=== PATIENT | female | born 1945 | race Caucasian/White ===

== ENCOUNTER → 2023-01-23 08:56 | Outpatient (CLI) | payer OTHER, SELFPAY ==
[2023-01-23 10:28] LABS: Cholesterol 116 mg/dL (140-199); HDL Cholesterol 48 mg/dL (40-60); LDL Cholesterol Calculated 56 mg/dL (<100); Triglycerides 58 mg/dL (35-150)
== END ==
PROVIDERS: PCP Student in an Organized Health Care Education/Training Program; Referring Provider Student in an Organized Health Care Education/Training Program; Visit Provider Student in an Organized Health Care Education/Training Program
DX: Z86.39 Personal history of other endocrine, nutritional and metabolic disease (principal)
CPT/HCPCS: 36415; 80061

== ENCOUNTER → 2023-08-19 11:35 | Outpatient (CLI) | payer OTHER, SELFPAY ==
--- NOTE | 2023-08-19 11:37 | DI.RAD.S_ITS ---
PROCEDURE: XR LUMBAR SPINE 2-3V INDICATIONS: Radicular Pain TECHNIQUE: 3 views of the lumbar spine were acquired. COMPARISON: None. FINDINGS: Bones: 5 [id number] vertebrae are present. There is mild, approximately 6 millimeters of T12-L1 and L1-L2 retrolisthesis. Mild, approximately 4 millimeters of L4-L5 anterolisthesis.. Convex right thoracolumbar spine scoliosis. Spine degenerative disc disease and facet arthropathy. No vertebral body compression fractures. No suspicious bony lesions. Soft tissues: Overlying bowel gas pattern is normal. No suspicious soft tissue calcifications. IMPRESSION: Multilevel degenerative disc disease. Multilevel facet arthropathy. Convex right thoracolumbar spine scoliosis. No fracture. No acute osseous lesion. If symptoms and/or clinical suspicion for pathology persists, evaluation with MRI should be considered for further assessment. Dictated by: Karyna Barron MD, PhD on 08/19/2023 at 12:33 Approved by: Karyna Barron MD, PhD on 08/19/2023 at 12:38
--- NOTE | 2023-08-19 11:37 | DI.RAD.S_ITS ---
PROCEDURE: XR HIP W PEL IF DONE RT 2V INDICATIONS: Radicular Pain TECHNIQUE: AP pelvis with lateral view(s) of the right hip(s). COMPARISON: None. FINDINGS: Bones: No fractures or dislocations. Pelvic ring appears intact. No suspicious bony lesions. Soft tissues: The visualized bowel gas pattern is normal. No suspicious soft tissue calcifications. IMPRESSION: No acute bony abnormality. Dictated by: Karyna Barron MD, PhD on 08/19/2023 at 12:39 Approved by: Karyna Barron MD, PhD on 08/19/2023 at 12:39
== END ==
PROVIDERS: PCP Student in an Organized Health Care Education/Training Program; Referring Provider Student in an Organized Health Care Education/Training Program; Visit Provider Student in an Organized Health Care Education/Training Program
DX: M54.10 Radiculopathy, site unspecified (principal); M51.36 Other intervertebral disc degeneration, lumbar region; M47.816 Spondylosis without myelopathy or radiculopathy, lumbar region; M41.9 Scoliosis, unspecified; M54.9 Dorsalgia, unspecified; G89.29 Other chronic pain
CPT/HCPCS: 72100; 73502

== ENCOUNTER → 2023-09-05 11:08 | Outpatient (CLI) | payer OTHER, SELFPAY ==
--- NOTE | 2023-09-05 11:09 | DI.MRI.S_ITS ---
PROCEDURE: MR LUMBAR SPINE WO CON INDICATIONS: LUMBAR RADICULOPATHY TECHNIQUE: Noncontrast sagittal T1 spin echo and T2 fast echo, sagittal STIR, and T2 fast spin echo through the lumbar spine. In cases with scoliosis, additional coronal T2 fast spin echo may be performed. COMPARISON: [facility], CR, XR LUMBAR SPINE 2-3V, 08/19/2023, 11:45. FINDINGS: Image quality: Excellent. Alignment and Curvature: S shaped thoracolumbar scoliotic curvature. Lumbar convexity is to the left, centered at L3-L4. Trace anterolisthesis of L1 on L2 and L2 on L3. Trace anterolisthesis of L4 on L5. Bone Marrow: Marrow is of normal overall signal. No acute vertebral body compression fractures. Spinal Cord: Conus medullaris terminates at the top of T1 level. Visualized cord demonstrates normal signal and size. Paraspinous Soft Tissues: No paravertebral masses. T10-T11: This area is not included on axial imaging, is the study is a lumbar spine MRI. That being said, there is a moderately large posterior disc protrusion indenting on the the cord resulting in canal stenosis. Reference sagittal image 10 of series 3. Canal stenosis may be as much as moderate. T11-T12: Disc height loss. Disc bulge. No canal stenosis or foraminal stenosis. T12-L1: Central posterior annulus tear plus disc bulge. Facet hypertrophy. No canal stenosis or foraminal stenosis. L1-L2: Severe chronic disc height loss. Trace retrolisthesis of L1 on L2. Facet hypertrophy. No canal stenosis or significant foraminal stenosis. L2-L3: Mild chronic disc height loss. Disc bulge with mild associated right posterior disc protrusion. No significant central canal stenosis. There is a degree of right lateral recess stenosis. [id number]-[id number] right foraminal narrowing. L3-L4: Disc bulge. Facet hypertrophy. Epidural lipomatosis. No canal stenosis or foraminal stenosis.. L4-L5: Anterolisthesis of L4 on L5. Disc bulge. Facet hypertrophy. The mild canal stenosis. [id number] right foraminal stenosis. Left foramen is patent. L5-S1: Severe chronic disc height loss. Remote left hemilaminectomy. Facet hypertrophy. No canal stenosis. Moderate to severe right foraminal narrowing with a degree of right foraminal L5 nerve root impingement. Reference sagittal T2 image 4 of series 3. IMPRESSION: 1. Underlying scoliotic curvature and multilevel facet arthropathy. 2. Seen on this lumbar spine MRI is a moderately large posterior disc protrusion at T10-T11 which indents on the cord resulting in as much as moderate canal stenosis. 3. There is mild canal stenosis at L4-L5. 4. Moderate to severe right foraminal narrowing at L5-S1. Dictated by: Sesar Gama M.D. on 09/05/2023 at 15:33 Approved by: Sesar Gama M.D. on 09/05/2023 at 15:43
== END ==
LOC: MRI 11:09
PROVIDERS: PCP Student in an Organized Health Care Education/Training Program; Referring Provider Orthopaedic Surgery Adult Reconstructive Orthopaedic Surgery; Visit Provider Orthopaedic Surgery Adult Reconstructive Orthopaedic Surgery
DX: M47.26 Other spondylosis with radiculopathy, lumbar region (principal); M47.27 Other spondylosis with radiculopathy, lumbosacral region; M48.061 Spinal stenosis, lumbar region without neurogenic claudication; M48.07 Spinal stenosis, lumbosacral region; M51.14 Intervertebral disc disorders with radiculopathy, thoracic region; M48.04 Spinal stenosis, thoracic region
CPT/HCPCS: 72148

== ENCOUNTER → 2023-09-09 19:34 | Outpatient (CLI) | payer OTHER, SELFPAY ==
--- NOTE | 2023-09-09 19:35 | DI.MRI.S_ITS ---
PROCEDURE: MR KNEE RT WO CON INDICATIONS: R knee swelling with pain TECHNIQUE: Noncontrast sagittal PD fast spin echo and T2 fast spin echo with fat saturation, sagittal 3-D FLASH with fat saturation; coronal T1 spin echo and PD fast spin echo with fat saturation, and axial PD fast spin echo with fat saturation through the knee. COMPARISON: None. FINDINGS: Image quality: Excellent. Menisci: Oblique tear involving posterior horn of medial meniscus is seen extending to inferior articulating surface. Peripheral displacement of medial meniscus bowing medial collateral ligament is also seen. There is also peripheral displacement of lateral meniscus with horizontal tear throughout lateral meniscus in superimposed oblique tear involving anterior horn and body of lateral meniscus extending to inferior articulating surface. The meniscal root ligaments appear intact. Cruciate ligaments: The anterior cruciate ligament is thickened with intrasubstance T2 hyperintense signal. Intrasubstance T2 hyperintense signal involving proximal posterior cruciate ligament near its proximal insertion. Medial structures: The medial collateral ligament appears mildly thickened with surrounding soft tissue edema and intrasubstance T2 hyperintense signal. Visualized portions of the pes anserinus tendons appear normal. No abnormal bursal fluid. Lateral structures: The lateral collateral ligament is thickened with intrasubstance T2 hyperintense signal near its femoral insertion. The long and short heads of the biceps femoris tendon appear intact. There is partial thickness tear and fluid distending tendon sheath involving proximal popliteus tendon extending to musculotendinous junction. Edema and fluid involving soft tissue between iliotibial band and lateral periphery of lateral femoral condyle. Anterior structures: The quadriceps tendon is intact. Diffusely thickened patellar tendon is seen.. Patellar alignment is normal. Edema is noted within infrapatellar fat pad. Bones and cartilage: Moderate tricompartmental osteoarthritis and chondromalacia is seen more notably in lateral femoral tibial compartment. No acute fracture or dislocation. Joint space: There is moderate suprapatellar knee joint fluid with fluid extending to posterior lateral aspect of left knee joint. There is a popliteal cyst measures up to 2.3 x 2.4 x 5.3 cm in size. Normal appearing synovial plicae are incidentally noted. IMPRESSION: 1. Oblique tear involving posterior horn of medial meniscus extending to inferior articulating surface. Horizontal tear throughout lateral meniscus with superimposed oblique tear involving body and posterior horn of lateral meniscus extending to inferior articulating surface. 2. Degenerative changes and low-grade sprain involving anterior cruciate ligament. Low-grade sprain/partial-thickness tear involving proximal PCL. No full-thickness cruciate ligament rupture. 3. Low-grade intrasubstance partial-thickness tear involving medial collateral ligament. Low to moderate grade partial-thickness tear involving proximal LCL. 4. Tenosynovitis and low to moderate grade partial-thickness tear involving popliteus tendon extending to musculotendinous junction. 5. Patellar tendinosis. The quadriceps tendon is intact. 6. Edema involving soft tissue between iliotibial band and lateral femoral condyle suggest clinical correlation for possible iliotibial band syndrome. 7. Moderate tricompartmental osteoarthritis and chondromalacia most notably in lateral femoral tibial compartment. No fracture or dislocation. Small to moderate joint effusion and a popliteal cyst as above. No gross loose bodies. Dictated by: Ángel Valdez M.D. on 09/09/2023 at 20:53 Approved by: Ángel Valdez M.D. on 09/09/2023 at 21:02
== END ==
PROVIDERS: PCP Student in an Organized Health Care Education/Training Program; Referring Provider Student in an Organized Health Care Education/Training Program; Visit Provider Student in an Organized Health Care Education/Training Program
DX: S83.241A Other tear of medial meniscus, current injury, right knee, initial encounter (principal); S83.281A Other tear of lateral meniscus, current injury, right knee, initial encounter; S83.511A Sprain of anterior cruciate ligament of right knee, initial encounter; S83.521A Sprain of posterior cruciate ligament of right knee, initial encounter; M65.9 Synovitis and tenosynovitis, unspecified; M17.11 Unilateral primary osteoarthritis, right knee; M94.261 Chondromalacia, right knee; M71.21 Synovial cyst of popliteal space [Baker], right knee; M25.561 Pain in right knee; M25.461 Effusion, right knee
CPT/HCPCS: 73721

== ENCOUNTER → 2023-09-26 12:56 | Outpatient (CLI) | payer OTHER, SELFPAY ==
[2023-09-26 13:17] LABS: Add Manual Diff / Slide Review NO; Basophils Absolute Auto 0 /uL (0-100); Basophils Percent Auto 0.5 % (0-2); Eosinophils Absolute Auto 200 /uL (0-450); Eosinophils Percent Auto 2.2 % (2-4); Hematocrit 35.7 % (36-46); Hemoglobin 12.3 g/dL (12.0-16.0); Lymphocytes Absolute Auto 1500 /uL (1100-4500); Lymphocytes Percent Auto 19.5 % (25-40); Mean Corpuscular HGB Conc 34.4 % (30-36); Mean Corpuscular Hemoglobin 28.7 PG (26-34); Mean Corpuscular Volume 83.3 fL (80-100); Monocytes Absolute Auto 500 /uL (0-900); Monocytes Percent Auto 6.5 % (3-14); Neutrophils Absolute Auto 5400 /uL (1500-7000); Neutrophils Percent Auto 71.3 % (50-75); Platelet Count 323 X10^3/uL (150-400); Red Blood Cell Count 4.29 X10^6/uL (4.0-5.2); Red Cell Distribution Width 14.3 % (11.6-14.8); White Blood Cell Count 7.6 X10^3/uL (4.5-11.0)
[2023-09-26 13:40] LABS: Alanine Aminotransferase 13 IU/L (<35); Albumin 4.5 g/dL (3.5-5.0); Albumin Globulin Ratio 1.4 (1.0-2.8); Alkaline Phosphatase 64 U/L (38-126); Aspartate Aminotransferase 24 IU/L (14-36); BUN Creatinine Ratio 25.6 (6-22); Bilirubin Total 0.8 mg/dL (0.2-1.3); Blood Urea Nitrogen 22 mg/dL (7-17); Calcium 9.4 mg/dL (8.4-10.2); Carbon Dioxide 27 mmol/L (22-32); Chloride 107 mmol/L (98-107); Cholesterol 148 mg/dL (140-199); Estimated Glomerular Filt Rate > 60 mL/min (>60); Globulin 3.2 g/dL (1.7-4.1); Glucose 103 mg/dL (80-110); HDL Cholesterol 54 mg/dL (40-60); HEMOLYSIS < 15 (0-50); LDL Cholesterol Calculated 77 mg/dL (<100); Potassium 3.9 mmol/L (3.4-5.1); Sodium 142 mmol/L (137-145); Total Protein 7.7 g/dL (6.3-8.2); Triglycerides 84 mg/dL (35-150)
[2023-09-26 15:35] LABS: Hemoglobin A1C% w Est Avg Glu 5.8 % (4.0-6.0)
== END ==
PROVIDERS: PCP Student in an Organized Health Care Education/Training Program; Referring Provider Student in an Organized Health Care Education/Training Program; Visit Provider Student in an Organized Health Care Education/Training Program
DX: E78.5 Hyperlipidemia, unspecified (principal); R79.89 Other specified abnormal findings of blood chemistry; Z83.3 Family history of diabetes mellitus; K21.9 Gastro-esophageal reflux disease without esophagitis
CPT/HCPCS: 36415; 80053; 80061; 83036; 85025

== ENCOUNTER → 2023-09-29 11:13 | Outpatient (CLI) | payer OTHER, SELFPAY ==
[2023-09-30 08:36] LABS: Fecal Immunochemical Test Negative (Negative)
== END ==
PROVIDERS: PCP Student in an Organized Health Care Education/Training Program; Referring Provider Student in an Organized Health Care Education/Training Program; Visit Provider Student in an Organized Health Care Education/Training Program
DX: Z12.11 Encounter for screening for malignant neoplasm of colon (principal)
CPT/HCPCS: 82274

== ENCOUNTER → 2024-01-09 09:06 | Outpatient (CLI) | payer OTHER, SELFPAY ==
--- NOTE | 2024-01-09 09:07 | DI.MG.S_ITS ---
BILATERAL DIGITAL SCREENING MAMMOGRAM 3D/2D WITH CAD: 01/09/2024 CLINICAL: Routine screening. Comparison is made to exams dated: 10/20/2019 mammogram, 05/20/2017 mammogram, and 05/04/2015 mammogram - outside facility. There are scattered areas of fibroglandular density (category b / 25%-50% glandular tissue). Current study was also evaluated with a Computer Aided Detection (CAD) system. No significant masses, calcifications, or other findings are seen in either breast. There has been no significant interval change. IMPRESSION: NEGATIVE There is no mammographic evidence of malignancy. A 1 year screening mammogram is recommended. Based on the Tyrer Cuzick model (a risk assessment model) the patient's lifetime risk is 3.2% and her 10 year risk is 0.0%. According to the ACR, ACS, and NCCN guidelines, an annual breast MRI exam along with mammogram is recommended if the patient's lifetime risk is 20% or greater. This exam was interpreted at Station ID: [id number]. NOTE: For mammograms, a report in lay terms will be sent to the patient. Approximately 15% of breast malignancies will not be visualized mammographically. In the management of a palpable breast mass, a negative mammogram must not discourage biopsy of a clinically suspicious lesion. Electronically Signed By: Renetta Valdez M.D., Ph.D. karen/moody:01/10/2024 00:13:53 letter sent: Normal Exam ACR BI-RADS Category 1: Negative
== END ==
LOC: MAMMO 09:07
PROVIDERS: PCP Student in an Organized Health Care Education/Training Program; Referring Provider Student in an Organized Health Care Education/Training Program; Visit Provider Student in an Organized Health Care Education/Training Program
DX: Z12.31 Encounter for screening mammogram for malignant neoplasm of breast (principal)
CPT/HCPCS: 77063; 77067

== ENCOUNTER 2024-09-18 10:09 | Emergency (ER) | payer OTHER, SELFPAY ==
--- NOTE | 2024-09-18 10:25 | ED_ITS ---
HPI - General Adult General Chief complaint: Abdominal Pain Stated complaint: Sent from [facility] N/V/D 2 weeks Time Seen by Provider: 09/18/24 10:24 History of Present Illness HPI narrative: 79-year-old woman with a history of hyperlipidemia, reflux presents complaining of nausea vomiting intermittent diarrhea and constipation along with overall abdominal pain. She has noted fevers and chills over the last couple of days. She does note irritable bowel syndrome and frequently has alternating diarrhea and constipation. She complains overall general malaise and feels she is getting worse. She has had a colonoscopy in the past with some benign polyps and is scheduled for a repeat colonoscopy within the year. Related Data Home Medications ?Medication ?Instructions ?Recorded ?Confirmed cyanocobalamin (vitamin B-12) 500 500 mcg PO DAILY 11/07/23 mcg lozenges (Vitamin B-12) omeprazole 20 mg capsule,delayed 20 mg PO DAILY 11/07/23 release Previous Rx's ?Medication ?Instructions ?Recorded cyclobenzaprine 5 mg tablet 5 mg PO TID PRN muscle spa sm #30 08/19/23 tabs naproxen 500 mg tablet 500 mg PO BID #30 tabs 08/18 hydrocodone 7.5 mg-acetaminophen 1 tab PO TID PRN pain #20 tabs 09/09/23 325 mg tablet prednisone 20 mg tablet 40 mg (2 x 20 mg) PO DAILY # 10 tabs 09/09/23 atorvastatin 20 mg tablet 20 mg PO DAILY #90 tabs 06/24 05/18 Allergies Allergy/AdvReac Type Severity Reaction Status Date / Time codeine AdvReac Mild Anxiety Verified 09/18/24 10:28 Review of Systems Review of Systems Narrative: Pertinent positive and negative findings as per HPI Patient History Medical History (Updated 09/18/24 @ 13:06 by Maine Pham MD) Papanicolaou smear of cervix within last year History of mammogram Age spots (~2018) Plantar fasciitis (~2020) Chronic back pain Surgical History (Updated 09/25/23 @ 11:46 by Marian Underwood MA) History of appendectomy (08/06/1957) [place] teeth removed (08/06/69) Anesthesia History of colonoscopy History of appendectomy (~1955) Family History (Updated 03/01/23 @ 21:26 by Nikole Santana) Father Cancer Mother Vascular disease Sister Diabetes mellitus Exam Initial Vital Signs Initial Vital Signs: General: Healthy appearing, in no acute distress. Able to give a complete and coherent history. Well-nourished well-developed HEENT: Moist mucous membranes, normal sclera with reactive pupils, Respiratory: Lungs are clear to auscultation, no wheezing no rales no rhonchi. Full and symmetrical air movement Cardiac: Regular rate and rhythm no murmurs no bruits Abdomen: Soft, mild diffuse pain without rebound or guarding, no flank pain Skin: Warm and dry, no rashes Neurologic: Grossly neurologically intact with no obvious asymmetries or abnormalities Extremities: No trauma, well perfused Psych: Cooperative, appropriate insight and affect Medical Decision Making Imaging Data CT scan - abdomen/pelvis: Radiologist's Impression: PROCEDURE: CT ABDOMEN PELVIS W CON INDICATIONS: diffuse abd pain continues with N/V/D TECHNIQUE: After the administration of intravenous contrast, axial sections acquired from the lung bases to the pubic symphysis. Coronal and sagittal reformats were performed. For radiation dose reduction, the following was used: automated exposure control, adjustment of mA and/or kV according to patient size. COMPARISON: None. FINDINGS: Image quality: Diagnostic. Lower Chest: No significant findings. ABDOMEN: Liver: No solid mass. 6.5 cm right hepatic cyst Gallbladder: Cholecystectomy. Biliary ducts: No biliary dilation. Pancreas: No ductal dilation. Spleen: Size is within normal limits. Adrenal Glands: No adrenal nodules. Kidneys and Ureters: No hydronephrosis. No solid mass. No complex renal cystic lesion which requires follow up. Stomach and Bowel: Normal colonic caliber, without significant wall thickening. Peritoneum: No abnormal intraperitoneal fluid. No free air. Ventral Wall: No significant ventral hernia. Abdominal Nodes: No retroperitoneal or mesenteric adenopathy by size criteria. Vessels: Aorta and inferior vena cava are normal in size. PELVIS: Pelvic Organs: Uterine fibroid measures 2.8 cm. Bladder: No bladder wall thickening, accounting for underdistention. Pelvic Nodes: No enlarged lymph nodes. Miscellaneous: No inguinal hernias are seen. Bones: Right L5 hemilaminectomy left pars defect. Advanced lumbar spine degenerative disc disease and arthropathy. IMPRESSION: No acute CT findings in the abdomen and pelvis Approved by: Gerald Wiley M.D. on 09/18/2024 at 11:05 [facility] Narrative Medical decision making narrative: CC: Nausea vomiting diarrhea increasing abdominal pain over the last 3 weeks along with malaise in his sense of general unwell Complicating co-morbidities: Hyperlipidemia, reflux Data collected from: patient Medical records reviewed: Wellness notes from primary care exam reviewed Differential considered: Viral syndrome, partial bowel obstruction, colitis, neoplastic process Exam documented above, pertinent findings include: Mild abdominal pain without any other findings Lab Test results independently reviewed as above. Pertinent findings: CBC is unremarkable Chemistries are reassuring with normal liver studies Lactic is not elevated Urine has trace ketones leukocyte esterase white cells, bacteria, squamous cells and mucus. We will wait for culture prior to calling this and infection Imaging studies independently reviewed: CT scan does not show significant abnormalities, specifically no explanation for the intermittent episodes of diarrhea and constipation Discussion: Findings reviewed with patient. 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 There is no evidence of obvious neoplastic process infection, obstruction or alternate explanation. We talked about using increased fiber to help with the intermittent diarrhea and constipation. Reassurance is given all questions were answered. There was no indication for hospitalization or additional workup and she is safe for dis charge Discharge Plan Departure Patient Disposition: Home Clinical Impression: Abdominal pain Qualifiers: Abdominal location: generalized Qualified Code(s): R10.84 - Generalized abdominal pain Instructions: DI for Abdominal Pain-Adult Activity Restrictions/Additional Instructions: Thank you for coming in today Your workup was quite reassuring. Lab studies looking at liver, kidneys, electrolytes, red blood cells and white blood cells were entirely reassuring. The CT scan that we did of your abdomen did not show significant pathology, specifically no obvious cancers or obstructions. With intermittent diarrhea and constipation, sometimes that can be stress related. Activity and consistent fiber and fluids always helps. It sounds like you have good habits with both of these already. I would recommend you consider adding fiber supplements daily. Fiber can make hard stool softer and soft stool have a bit more substance. I would recommend discussing this further with your primary care physician. If you find that you are getting worse, develop new symptoms or have further concerns please return to the ER Prescriptions: No Action omeprazole 20 mg capsule,delayed release(DR/EC) 20 mg PO DAILY cyanocobalamin (vitamin B-12) [Vitamin B-12] 500 mcg lozenge 500 mcg PO DAILY naproxen 500 mg tablet 500 mg PO BID Qty: 30 0RF cyclobenzaprine 5 mg tablet 5 mg PO TID PRN (Reason: muscle spasm) Qty: 30 0RF hydrocodone-acetaminophen 7.5-325 mg tablet 1 tab PO TID PRN (Reason: pain) Qty: 20 0RF prednisone 20 mg tablet 40 mg PO DAILY Qty: 10 0RF atorvastatin 20 mg tablet 20 mg PO DAILY Qty: 90 3RF Referrals: Kari Ansari MD [Primary Care Provider, Family Practice] Stand Alone Forms: Patient Portal/API
[2024-09-18 10:28] VITALS: BP 138/87; PULSE 100; RESP 16; TEMP 36.9; O2SAT 96; BMI 28.6
--- NOTE | 2024-09-18 10:33 | DI.CT.S_ITS ---
PROCEDURE: CT ABDOMEN PELVIS W CON INDICATIONS: diffuse abd pain continues with N/V/D TECHNIQUE: After the administration of intravenous contrast, axial sections acquired from the lung bases to the pubic symphysis. Coronal and sagittal reformats were performed. For radiation dose reduction, the following was used: automated exposure control, adjustment of mA and/or kV according to patient size. COMPARISON: None. FINDINGS: Image quality: Diagnostic. Lower Chest: No significant findings. ABDOMEN: Liver: No solid mass. 6.5 cm right hepatic cyst Gallbladder: Cholecystectomy. Biliary ducts: No biliary dilation. Pancreas: No ductal dilation. Spleen: Size is within normal limits. Adrenal Glands: No adrenal nodules. Kidneys and Ureters: No hydronephrosis. No solid mass. No complex renal cystic lesion which requires follow up. Stomach and Bowel: Normal colonic caliber, without significant wall thickening. Peritoneum: No abnormal intraperitoneal fluid. No free air. Ventral Wall: No significant ventral hernia. Abdominal Nodes: No retroperitoneal or mesenteric adenopathy by size criteria. Vessels: Aorta and inferior vena cava are normal in size. PELVIS: Pelvic Organs: Uterine fibroid measures 2.8 cm. Bladder: No bladder wall thickening, accounting for underdistention. Pelvic Nodes: No enlarged lymph nodes. Miscellaneous: No inguinal hernias are seen. Bones: Right L5 hemilaminectomy left pars defect. Advanced lumbar spine degenerative disc disease and arthropathy. IMPRESSION: No acute CT findings in the abdomen and pelvis Approved by: Gerald Wiley M.D. on 09/18/2024 at 11:05
[2024-09-18 11:13] LABS: Lactate (Lactic Acid) 0.9 mmol/L (0.7-2.1)
[2024-09-18 11:13] LABS: Appearance Urine UA CLOUDY; Bilirubin Urine UA NEGATIVE (NEGATIVE); Color Urine UA YELLOW; Glucose Urine UA NEGATIVE (Negative); Ketones Urine UA TRACE (NEGATIVE); Leukocyte Esterase Urine UA 1+ (NEGATIVE); Nitrite Urine UA NEGATIVE (Negative); Occult Blood Urine UA TRACE-INTACT (Negative); Protein Urine UA 1+ (Negative); Specific Gravity Urine UA 1.025 (1.000-1.035); Urobilinogen Urine UA 1.0 E.U./dL (0.2)
[2024-09-18 11:14] LABS: Alanine Aminotransferase 18 IU/L (<35); Albumin 4.7 g/dL (3.5-5.0); Albumin Globulin Ratio 1.4 (1.0-2.8); Alkaline Phosphatase 66 U/L (38-126); Blood Urea Nitrogen 16 mg/dL (7-17); Calcium 9.4 mg/dL (8.4-10.2); Carbon Dioxide 25 mmol/L (22-32); Chloride 106 mmol/L (98-107); Estimated Glomerular Filt Rate > 60 mL/min (>60); Globulin 3.4 g/dL (1.7-4.1); Glucose 119 mg/dL (70-99); HEMOLYSIS < 15 (0-50); Lipase 39 U/L (23-300); Potassium 3.9 mmol/L (3.4-5.1); Sodium 140 mmol/L (137-145); Total Protein 8.1 g/dL (6.3-8.2)
[2024-09-18 11:15] LABS: pH Urine UA 6.0 (4.5-8.0)
[2024-09-18 11:27] LABS: Culture Indicated Urine Specimen Cultured
[2024-09-18 11:35] LABS: Add Manual Diff / Slide Review NO; Hematocrit 37.0 % (36-46); Hemoglobin 12.9 g/dL (12.0-16.0); Lymphocytes Absolute Auto 900 /uL (1100-4500); Mean Corpuscular HGB Conc 34.9 % (30-36); Mean Corpuscular Hemoglobin 28.6 PG (26-34); Mean Corpuscular Volume 82.1 fL (80-100); Platelet Count 277 X10^3/uL (150-400)
[2024-09-18 12:00] VITALS: BP 142/78; PULSE 89; RESP 19; O2SAT 98
[2024-09-18 12:30] VITALS: BP 136/74; PULSE 87; RESP 18; O2SAT 99
[2024-09-18 13:22] VITALS: BP 144/78; PULSE 65; RESP 18; TEMP 36.9; O2SAT 99
== END 2024-09-18 13:23 | disposition home or self-care (01) ==
PROVIDERS: Emergency Provider Emergency Medicine; PCP Student in an Organized Health Care Education/Training Program
DX: R10.84 Generalized abdominal pain (principal); R11.2 Nausea with vomiting, unspecified; K59.00 Constipation, unspecified; R19.7 Diarrhea, unspecified; R50.9 Fever, unspecified
CPT/HCPCS: 74177; 80053; 81001; 81003; 83605; 83690; 85025; 87086; 99282; 99284; Q9967

== ENCOUNTER 2024-12-01 07:26 | Day surgery (SDC) | payer OTHER, SELFPAY ==
--- NOTE | 2024-12-01 | PATH_ITS ---
[facility] Accession Number: [id number] No. of containers..01 Tissue . 01 Material submitted: . colon - ASCENDING POLYP . 01 Diagnosis: ASCENDING COLON POLYP: Tubular adenoma. MRV 12/13/2024 1237 Local . 01 Electronically signed: . Kaycee Obrien MD, Pathologist NPI- [id number] . 01 Gross description: . Received one formalin-filled container, labeled with the patient's name, labeled ascending polyp. The specimen consists of three fragments of tissue and/or debris which range in size from 0.2 x 0.2 x 0.2 cm to 0.3 x 0.3 x 0.3 cm. All fragments are totally submitted in one cassette. ([facility]:[id number]) /MRV 12/09/2024 1932 Local . 01 Pathologist provided ICD-10: D12.2 . 01 CPT . 164549 Specimen Comment: A courtesy copy of this report has been sent to [phone] Performed at: [address] [id number] MD Joshua Simon MD Phone: [phone]
[2024-12-01] MEDS: LACTATED RINGERS 1,000 ML 42 ML IV (07:54)
--- NOTE | 2024-12-01 08:21 | PM.HP.IH.1 ---
History of Present Illness History of Present Illness Date Patient Seen: 12/01/24 Chief complaint: Screening Colonoscopy [facility] Medical History (Updated 10/26/24 @ 11:17 by Gerald Wiley MD) Primary osteoarthritis of right knee Papanicolaou smear of cervix within last year History of mammogram Age spots (~2018) Plantar fasciitis (~2020) Chronic back pain Surgical History (Updated 09/25/23 @ 11:46 by Marian Underwood MA) History of appendectomy (08/06/1957) [place] teeth removed (08/06/69) Anesthesia History of colonoscopy History of appendectomy (~1955) Family History (Updated 03/01/23 @ 21:26 by Nikole Santana) Father Cancer Mother Vascular disease Sister Diabetes mellitus Social History (Updated 10/01/24 @ 13:41 by Marian Underwood MA) number of children: 1 household members: significant other lives independently: Yes caregiver/support person: Yes pets and animals: No occupational status: other current occupational exposures/hazards: No 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 noemi/confucianism: zoroastrian/ non practicing special noemi needs: No travel history: other sexual history: N/A leisure activities: other other: Major gardening seatbelt use: always working smoke detector in home: Yes fire extinguisher in home: Yes carbon monox detector in home: Yes firearms in home: No do you feel safe at home: Yes Smoking Status: Never smoker second hand exposure: Yes (as a child with smoking parents) alcohol intake: never during the past year weight has: remained stable well-balanced diet: daily or most days daily servings fruits/ve-4 caffeine: Yes (one morning cup.) eating out: rarely or never Type(s) of exercise: walking additional social history: Having all my family in one spot makes me happy. It used to be long distance. Meds Home Medications and Allergies Home Medications ?Medication ?Instructions ?Recorded ?Confirmed ?Type cyanocobalamin (vitamin B-12) 500 500 mcg PO DAILY 01/21/23 12/01/24 History mcg lozenges (Vitamin B-12) atorvastatin 20 mg tablet 20 mg PO DAILY #90 tabs 07/06/24 12/01/24 Rx omeprazole 20 mg capsule,delayed 20 mg PO DAILY #90 caps 09/23/24 12/01/24 Rx release Allergies Allergy/AdvReac Type Severity Reaction Status Date / Time codeine AdvReac Mild Anxiety Verified 12/01/24 07:32 Exam Vital Signs (past 8 hours): - 12/01/24 07:56 Oxygen Delivery Method Room Air Oxygen Delivery Method Room Air Narrative Exam Narrative: Oropharynx free of lesions Chest clear to auscultation percussion Cardiac exam reveals 2/6 murmur but otherwise negative Assessment & Plan Assessment & Plan narrative: History of adenomatous colon polyps need for follow-up colonoscopy. Risks, benefits, alternatives have been explained. Time-Based Coding :: [TOTAL MINUTES] spent with patient and on the chart (including review of chart, obtaining history, exam, reviewing outside data, placing orders, documenting exam and treatment plan, and counseling patient) on [DATE]. PROFEE Nail Expert Document charge(s): No
--- NOTE | 2024-12-01 08:22 | PM.OP.COLON ---
Operative Date/Time/Diagnoses Date of procedure: 12/01/24 Time of procedure: 09:06 Pre-op diagnosis: See indication and findings Post-op diagnosis: same Procedure & Clinicians Study performed: Colonoscopy Same procedure(s) as scheduled: Yes Indications: History of adenomatous colon polyps Surgeon: Colleen Carrillo Anesthesia Type: Other Procedure Notes Procedure in detail: After informed consent was obtained the patient was placed in left lateral decubitus position. The video colonoscopy was placed the rectum slowly advanced cecum. Preparation was good. On slow withdrawal mucosa was carefully examined. The scope was removed. The patient tolerated procedure well. Blood loss none Complications none Sedation mac Findings 1. 6 mm polyp in the ascending colon cold snared and removed completely 2. Otherwise negative colonoscopy to cecum We will merely see what the pathology shows on this polyp. Would either suggest that this be her last colonoscopy or, if in excellent health, 1 final colonoscopy in 5 years at age 84.
[2024-12-01 09:10] VITALS: BP 120/67; PULSE 78; RESP 16; TEMP 37.1; O2SAT 97
[2024-12-01 09:15] VITALS: BP 119/67; PULSE 74; RESP 16; TEMP 37; O2SAT 97
[2024-12-01 09:20] VITALS: BP 122/66; PULSE 79; RESP 16; TEMP 37; O2SAT 98
== END 2024-12-01 09:29 | disposition home or self-care (01) ==
PROVIDERS: PCP Student in an Organized Health Care Education/Training Program; Referring Provider Student in an Organized Health Care Education/Training Program; Visit Provider Internal Medicine Gastroenterology
PROC: 0DJD8ZZ Inspection of Lower Intestinal Tract, Via Natural or Artificial Opening Endoscopic (ICD-10-PCS; CPT 45378; principal; 2024-12-01 08:30)
DX: Z12.11 Encounter for screening for malignant neoplasm of colon (principal); Z86.0101 Personal history of adenomatous and serrated colon polyps; D12.2 Benign neoplasm of ascending colon
CPT/HCPCS: 45385; J2704; J7120

== ENCOUNTER → 2024-12-16 13:29 | Outpatient (CLI) | payer OTHER, SELFPAY ==
--- NOTE | 2024-12-16 13:30 | DI.RAD.S_ITS ---
PROCEDURE: XR HIP W PEL IF DONE RT 2V INDICATIONS: Right hip pain TECHNIQUE: AP pelvis with lateral view(s) of the right hip(s). COMPARISON: [facility], CR, XR HIP W PEL IF DONE RT 2V, 08/19/2023, 11:45. FINDINGS: Bones: There are no osseous abnormalities. SI and hip joints: Vague curvilinear radiolucency of the right femoral head with slight flattening suggests avascular necrosis. This represents a change from the comparison exam 1.5 years ago. Moderate right and mild left hip degeneration has progressed. SI joints are normal. Moderate L4-5 and L5-S1 degenerative disc disease. Mild chronic osteitis pubis again noted Soft tissues: No soft tissue swelling, calcification or mass. 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 If this requires definitive diagnosis suggest pelvic MRI Moderate right and mild left hip degeneration progressing since comparison exam 1.5 years ago. Dictated by: Ryne Nguyễn M.D. on 12/17/2024 at 12:05 Approved by: Ryne Nguyễn M.D. on 12/17/2024 at 12:07
== END ==
PROVIDERS: PCP Student in an Organized Health Care Education/Training Program; Referring Provider Physical Medicine & Rehabilitation; Visit Provider Physical Medicine & Rehabilitation
DX: M16.0 Bilateral primary osteoarthritis of hip (principal); M25.551 Pain in right hip; M51.369 Other intervertebral disc degeneration, lumbar region without mention of lumbar back pain or lower extremity pain; M51.379 Other intervertebral disc degeneration, lumbosacral region without mention of lumbar back pain or lower extremity pain
CPT/HCPCS: 73502

== ENCOUNTER → 2024-12-28 13:18 | Outpatient (CLI) | payer OTHER, SELFPAY ==
--- NOTE | 2024-12-28 13:19 | DI.MRI.S_ITS ---
PROCEDURE: MR HIP RT WO CON INDICATIONS: right hip pain, abnormal XR TECHNIQUE: Noncontrast coronal T1 spin echo and STIR through the bony pelvis. Coronal and axial T2 fast spin echo with fat saturation, sagittal T1 spin echo, and oblique axial T2 fast spin echo with fat saturation through the hip. COMPARISON: [facility], CR, XR HIP W PEL RT 2V, 12/16/2024, 13:26. FINDINGS: Image quality: Excellent. Bones and joints: Degenerative changes of the lower lumbar spine, incompletely evaluated. The sacrum is intact. Mild degenerative changes of bilateral sacroiliac joint, with mild subchondral marrow edema. Mild degenerative change of the pubic symphysis. Joint space of the left hip is grossly well maintained. No acute fracture or dislocation of the left hip. Likely full-thickness, full width tear of the left gluteal minimus at the greater trochanteric insertion, incompletely evaluated. Severe degenerative changes of the right hip. There is multifocal small subchondral fracture in the right femoral head, with articular surface collapse, and marked marrow edema in the right femoral head, extending into the right great trochanteric femur. Moderate right hip effusion. The Tendons and ligaments: The right iliopsoas is unremarkable. There is marked muscle edema with severe fatty atrophy of the right quadratus femoris, nonspecific and may be secondary to denervation versus right ischial femoral impingement. Low-grade tear of the right semimembranosus tendon origin at the right ischial tuberosity. There is full-thickness tear of the conjoined tendon of the hamstring at the ischial tuberosity, without significant tendon retraction. Full-thickness, full width tear of the right gluteal minimus, without tendon retraction, at the right greater trochanteric insertion. The right gluteal medius tendon is unremarkable. Labrum and cartilage: Circumferential labral tear. No paralabral cyst. Soft tissues: Multiple uterine fibroids are noted. IMPRESSION: 1. Severe degenerative changes of the right hip. Multifocal small subchondral fracture in the right femoral head with articular surface collapse and marked marrow edema. 2. Severe fatty atrophy of the right quadratus femoris, with muscle edema, which may be secondary to denervation versus right ischial femoral impingement. 3. Full-thickness tear of the conjoined tendon of the right hamstring. 4. Full-thickness tear of the right gluteal minimus. 5. Full-thickness tear of the left gluteal minimus, incompletely evaluated. Dictated by: Gina Batista M.D. on 12/28/2024 at 16:52 Approved by: Gina Batista M.D. on 12/28/2024 at 17:07
== END ==
LOC: MRI 13:18
PROVIDERS: PCP Student in an Organized Health Care Education/Training Program; Referring Provider Physical Medicine & Rehabilitation; Visit Provider Physical Medicine & Rehabilitation
DX: S72.061A Displaced articular fracture of head of right femur, initial encounter for closed fracture (principal); S76.811A Strain of other specified muscles, fascia and tendons at thigh level, right thigh, initial encounter; S76.012A Strain of muscle, fascia and tendon of left hip, initial encounter; S76.011A Strain of muscle, fascia and tendon of right hip, initial encounter; M25.551 Pain in right hip; R93.7 Abnormal findings on diagnostic imaging of other parts of musculoskeletal system
CPT/HCPCS: 73721

== ENCOUNTER → 2025-01-31 12:54 | Outpatient (CLI) | payer OTHER, SELFPAY ==
--- NOTE | 2025-01-31 12:57 | EKG_ITS ---
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
[2025-01-31 13:38] LABS: Add Manual Diff / Slide Review NO; Hematocrit 34.9 % (36-46); Hemoglobin 12.0 g/dL (12.0-16.0); Lymphocytes Absolute Auto 1500 /uL (1100-4500); Mean Corpuscular HGB Conc 34.3 % (30-36); Mean Corpuscular Hemoglobin 27.7 PG (26-34); Mean Corpuscular Volume 80.8 fL (80-100); Platelet Count 294 X10^3/uL (150-400)
[2025-01-31 13:46] LABS: Hemoglobin A1C% w Est Avg Glu 5.5 % (4.0-6.0)
[2025-01-31 13:58] LABS: Albumin 4.5 g/dL (3.5-5.0); Blood Urea Nitrogen 14 mg/dL (7-17); Calcium 9.5 mg/dL (8.4-10.2); Carbon Dioxide 26 mmol/L (22-32); Chloride 104 mmol/L (98-107); Estimated Glomerular Filt Rate > 60 mL/min (>60); Glucose 133 mg/dL (70-99); HEMOLYSIS < 15 (0-50); Potassium 4.1 mmol/L (3.4-5.1); Sodium 141 mmol/L (137-145)
[2025-01-31 14:07] LABS: Prealbumin 16.7 mg/dL (17.6-36.0)
[2025-01-31 18:59] LABS: Vitamin D 25 Hydroxy (D3) 14.9 ng/mL (30.0-100.0)
== END ==
PROVIDERS: PCP Student in an Organized Health Care Education/Training Program; Referring Provider Orthopaedic Surgery Adult Reconstructive Orthopaedic Surgery; Visit Provider Orthopaedic Surgery Adult Reconstructive Orthopaedic Surgery
DX: Z01.818 Encounter for other preprocedural examination (principal)
CPT/HCPCS: 36415; 80048; 82040; 82306; 83036; 84134; 85025; 93005; 93010

== ENCOUNTER → 2025-02-02 13:48 | Outpatient (CLI) | payer OTHER, SELFPAY ==
--- NOTE | 2025-02-02 13:50 | DI.RAD.S_ITS ---
PROCEDURE: XR DEXA AXIAL SKELETON INDICATIONS: pre-op testing COMPARISON: None. FINDINGS: Lumbar Spine: Bone mineral density 1.219 g/cm2, T score 1.6. Right Femoral Neck: Bone mineral density 0.786 g/cm2, T score -0.6. Right Hip: Bone mineral density 0.972 g/cm2, T score 0.2. Fracture Risk Calculation (when applicable): 10-year fracture risk of a major osteoporotic fracture 19 percent and of a hip fracture 8.2 percent. (T score greater or equal to -1.0 to: NORMAL) (T score from -1.1 to -2.4: OSTEOPENIA) (T score less than or equal to -2.5: OSTEOPOROSIS) IMPRESSION: Normal bone mineral density. Follow-up guidelines as follows: Osteoporosis: Consider a repeat DEXA and Vertebral Fracture Assessment (VFA) exam in 2 years or sooner if medically necessary, to reassess this patient's status. Osteopenia: Consider a repeat DEXA in 2-3 years to reassess this patient's status, or if there is a new clinical indication. Normal: Consider a repeat DEXA in 5 years or sooner, or if there is a new clinical indication. All treatment decisions require clinical judgment and consideration of individual patient factors, including patient preferences, comorbidities, previous drug use, risk factors not captured in the FRAX model (e.g., frailty, falls, vitamin D deficiency, increased bone turnover, interval significant decline in bone density ) and possible under- or over-estimation of fracture risk by FRAX. In addition, the NOF Guide recommends that FDA-approved medical therapies be considered in postmenopausal women and men age >= 50 years with a: * Hip or vertebral (clinical or morphometric) fracture * T-score of <=-2.5 at the spine or hip * Ten-year fracture probability by FRAX of >= 3% for hip fracture or >=20% for major osteoporotic fracture. Dictated by: Eduarda Avila M.D. on 02/03/2025 at 15:43 Approved by: Eduarda Avila M.D. on 02/03/2025 at 15:45
== END ==
LOC: RAD 13:49
PROVIDERS: PCP Student in an Organized Health Care Education/Training Program; Referring Provider Orthopaedic Surgery Adult Reconstructive Orthopaedic Surgery; Visit Provider Orthopaedic Surgery Adult Reconstructive Orthopaedic Surgery
DX: M81.0 Age-related osteoporosis without current pathological fracture (principal)
CPT/HCPCS: 77080